=== PATIENT | male | born 1980 | race Two or more races ===

== ENCOUNTER → 2024-12-05 | Outpatient (BNVA) | payer MEDICAID, SELFPAY | END | disposition home or self-care (01) | PROVIDERS: PCP Physician Assistant; Referring Provider Physician Assistant; Visit Provider Urology | DX: N40.1 Benign prostatic hyperplasia with lower urinary tract symptoms (principal); N13.8 Other obstructive and reflux uropathy; N50.3 Cyst of epididymis; Z80.42 Family history of malignant neoplasm of prostate; R73.03 Prediabetes; Z99.3 Dependence on wheelchair; E66.9 Obesity, unspecified; E78.00 Pure hypercholesterolemia, unspecified | CPT/HCPCS: 81003; 99212; 99213; G0463 ==

== ENCOUNTER 2025-05-27 09:30 | Outpatient (RCR) | payer MEDICAID, SELFPAY ==
--- NOTE | 2025-05-14 10:10 | PTNOTE_ITS ---
PT OP Initial Eval Patient Information Outpatient Physical Therapy Treatment Date: 05/14/25 Visit Reasons: RT leg pain Medical Diagnosis: G80 M79.65 Treatment Dx #1: R LE pain Start of Care: 05/14/25 Date of Onset: 10 yrs ago Smoking Status Smoking Status: Never smoker Initial Assessment Subjective: Pt is 45 yr old male in W/C with PMH of arthrogryposis brought in by his mother for R LE pain. Pt points to the R femur as site of pain. Pt is in the W/C for most of the time and goes to program during the day. To transfer from the W/C he squat pivots with assist. PMH: arthrogryposis, R femur FX with ORIF 2014 Mom's goal: less R LE pain Objective: Transfers: from W/C to mat table to supervision, squat pivot with R LE pain W/C: pt self-propels R knee AROM: Extension: -20 deg Flexion: 95 deg Strength: 3-/5 quads/HS Assessment: Pt presents with pain of R distal quads consistent with the FX and hardware placed there. He has limited R knee strength and ROM and has significant quad and gastroc atrophy. Pt may benefit from skilled therapy and has fair/poor rehab potential to meet goals. Short Term and [employer] Goals 1. Ind with HEP 2. Improved R knee AROM to -10 deg extenion 3. Improved R quad strength to 4-/5 4. Pt will transfer from W/C to mat table with <=3/10 R LE pain Treatment Plan 1. Manual therapy ? 2. Therex ? 3. Modalities as indicated, moist heat pack, ice, electrical stimulation, Frequency and Duration: 1-2x a week for 4 visits plus the evaluation Certification Dates: 05/14/25 to 07/11/25 Procedure Charges OP PT Eval Mod Complex 30 minutes: Yes
--- NOTE | 2025-05-20 13:45 | PT.ODAYNRPT ---
PT Outpatient Daily Note OP Daily Note Outpatient Physical Therapy Treatment Date: 05/20/25 Visit Reasons: RT leg pain Subjective: Same as time of evaluation Objective: See F/S for therex Assessment: Difficulty with bridging due to hip and quad weakness and probably knee pain Plan: Continue per POC Length of Time (minutes) of Treatment: 30 Minutes Procedure Charges Therapeutic Exercise 30 minutes: Yes
--- NOTE | 2025-05-27 13:15 | PT.ODS1RPT ---
PT OP Progress/Discharge Note Date of Service: 05/27/25 Progress Note/DC Note Progress Note/Discharge Note: DC Note Patient Information Visit Reasons: RT leg pain Service Continue Service or Discharge: Discharge Discharge Date: 05/27/25 Status Subjective: Same as time of evaluation, continued R knee and quad pain. Objective: Same as the evaluation Assessment: Pt has attended the eval and 2 Rx sessions with continued R knee and distal quad pain that limits loading the knee. He can stand and squat pivot transfer from W/C but he avoids bending the knee due to pain. This is not making progress and has poor rehab potential and he hasn't met goals. Thank you for your referrals. Plan: D/C with HEP Procedure Charges Therapeutic Exercise 30 minutes: Yes
== END 2025-05-31 23:59 | disposition home or self-care (01) ==
LOC: CPTX 09:30
PROVIDERS: PCP Physician Assistant; Referring Provider Physician Assistant; Visit Provider Physician Assistant
DX: M79.604 Pain in right leg (principal); Q68.8 Other specified congenital musculoskeletal deformities
CPT/HCPCS: 97110; 97162